=== PATIENT | male | born 1955 | race African-American/Black ===

== ENCOUNTER 2023-09-07 11:32 | Emergency (ER) | payer BC, OTHER ==
[~2023-09-07] VITALS: Ht 170.2 cm; Wt 118.0 kg
[2023-09-07 11:35] VITALS: TEMP 98.7; O2SAT 100
[2023-09-07 12:33] VITALS: BP 130/67; PULSE 77; RESP 18
[2023-09-07] MEDS: KETOROLAC 30MG/ML VIAL IM ONE (12:33)
[2023-09-07] MEDS ORDERED: IBUP-2029 MT (13:39)
[2023-09-07] MEDS: HYDROCODONE/ACETAMINOPHEN 5/325MG TABLET PO ONE (14:32)
== END 2023-09-07 18:56 | disposition home or self-care (01) ==
LOC: ER 11:32
DX: S93.402A Sprain of unspecified ligament of left ankle, initial encounter (principal); S93.401A Sprain of unspecified ligament of right ankle, initial encounter; S83.91XA Sprain of unspecified site of right knee, initial encounter; W18.39XA Other fall on same level, initial encounter; Y93.89 Activity, other specified; Y92.89 Other specified places as the place of occurrence of the external cause; Y99.8 Other external cause status
CPT/HCPCS: 73562; 73610; 96372; 99284; J1885; Z7610